=== PATIENT | female | born 2005 | race Caucasian/White ===

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

== ENCOUNTER 2024-05-31 16:55 | Outpatient (CLI) | payer MEDICAID, SELFPAY ==
[2024-05-31 17:55] LABS: Alanine Aminotransferase 20 U/L (12-78); Albumin Level 3.9 g/dl (3.5-5.0); Albumin/Globulin Ratio 1.4 (1.1-1.8); Alkaline Phosphatase 75 U/L (38-126); Anion Gap 11.4 mEq/L (5-15); Aspartate Amino Transferase 23 U/L (14-36); Bilirubin,Total 0.4 mg/dl (0.2-1.3); Blood Urea Nitrogen 11 mg/dl (7-17); Calcium 9.7 mg/dl (8.4-10.2); Carbon Dioxide 22 mmol/L (22.0-30.0); Chloride 110 mmol/L (98-107); Chol/HDL Ratio 3.5 (1-3.5); Cholesterol 257 mg/dl (140-200); Estimated Glomerular Filt Rate 108 ml/min (>60); GFR (African American) 130 ML/MIN (>60); Globulin 2.8 g/dL (1.3-3.2); Glucose 104 mg/dl (74-100); HDL Cholesterol 74 mg/dl (40-60); Potassium 3.4 mmoL/L (3.5-5.1); Sodium 140 mmol/L (136-145); Total Protein,Serum 6.7 g/dl (6.3-8.2); Triglycerides 130 mg/dl (30-150); VLDL Cholesterol 26 mg/dL (0-40)
[2024-05-31 18:07] LABS: Direct LDL Cholesterol 141.17 mg/dL (100-129)
[2024-05-31 18:10] LABS: Free T4 (Free Thyroxine) 1.35 ng/dl (0.78-2.19)
[2024-05-31 18:14] LABS: T4 (Thyroxine) 13.7 ug/dl (5.53-11.0)
[2024-05-31 18:28] LABS: Thyroid Stimulating Hormone 0.72 uIU/mL (0.465-4.68)
[2024-05-31 18:45] LABS: Vitamin B12 289 pg/mL (239-931)
[2024-05-31 20:35] LABS: Ferritin 17.3 ng/ml (6.24-137)
[2024-06-02 08:08] LABS: Thyroid Peroxidase Antibodies <9 IU/mL (0-26)
== END 2024-05-31 23:59 | disposition home or self-care (01) ==
LOC: LAB.DROPOF 06-03 16:56
PROVIDERS: PCP Nurse Practitioner Family; Visit Provider Nurse Practitioner Family
DX: E05.90 Thyrotoxicosis, unspecified without thyrotoxic crisis or storm (principal); E78.5 Hyperlipidemia, unspecified; I49.8 Other specified cardiac arrhythmias
CPT/HCPCS: 80053; 80061; 82607; 82728; 84436; 84439; 84443; 84481; 86376

== ENCOUNTER 2024-08-23 16:13 | Outpatient (CLI) | payer MEDICAID, SELFPAY ==
[2024-08-23 17:02] LABS: Albumin Level 4.4 g/dl (3.5-5.0); Chloride 106 mmol/L (98-107); Potassium 4.3 mmoL/L (3.5-5.1); Sodium 140 mmol/L (136-145)
[2024-08-23 17:05] LABS: Alanine Aminotransferase 18 U/L (12-78); Albumin/Globulin Ratio 1.6 (1.1-1.8); Alkaline Phosphatase 58 U/L (38-126); Anion Gap 12.3 mEq/L (5-15); Aspartate Amino Transferase 26 U/L (14-36); Bilirubin,Total 0.5 mg/dl (0.2-1.3); Blood Urea Nitrogen 8 mg/dl (7-17); Calcium 10.1 mg/dl (8.4-10.2); Carbon Dioxide 26 mmol/L (22.0-30.0); Estimated Glomerular Filt Rate 107 ml/min (>60); GFR (African American) 129 ML/MIN (>60); Globulin 2.8 g/dL (1.3-3.2); Glucose 73 mg/dl (74-100); Total Protein,Serum 7.2 g/dl (6.3-8.2)
[2024-08-23 17:20] LABS: 25-OH Vitamin D, Total 13.9 ng/mL (30-100)
[2024-08-23 17:35] LABS: Thyroid Stimulating Hormone 0.92 uIU/mL (0.465-4.68)
[2024-08-23 17:39] LABS: Ferritin 21.9 ng/ml (6.24-137)
[2024-08-23 18:40] LABS: Vitamin B12 339 pg/mL (239-931)
[2024-08-25 07:08] LABS: Triiodothyronine (T3) Free 3.1 pg/mL (2.0-4.4)
[2024-08-28 12:21] LABS: Chol/HDL Ratio 2.9 (1-3.5); Cholesterol 235 mg/dl (140-200); HDL Cholesterol 80 mg/dl (40-60); Triglycerides 165 mg/dl (30-150); VLDL Cholesterol 33 mg/dL (0-40)
[2024-08-28 18:10] LABS: Vitamin B1 111.4 nmol/L (66.5-200.0)
== END 2024-08-23 23:59 | disposition home or self-care (01) ==
LOC: LAB 16:14
PROVIDERS: PCP Nurse Practitioner Family; Visit Provider Nurse Practitioner Family
DX: E78.5 Hyperlipidemia, unspecified (principal); I49.8 Other specified cardiac arrhythmias; N92.6 Irregular menstruation, unspecified; E05.90 Thyrotoxicosis, unspecified without thyrotoxic crisis or storm
CPT/HCPCS: 36415; 80053; 80061; 82306; 82607; 82728; 83735; 84207; 84425; 84443; 84481

== ENCOUNTER 2024-11-19 16:03 | Outpatient (CLI) | payer MEDICAID, SELFPAY ==
[2024-11-19 13:59] LABS: Basophils % 0.5 % (0.1-2.0); Eosinophils # 0.1 K/mm3 (0.0-0.4); Eosinophils % 1.4 % (0.1-12.0); Hematocrit 37.2 % (37.0-47.0); Hemoglobin 12.5 g/dL (12.2-16.2); Lymphocytes % 44.7 % (10-50); Mean Corpuscular HGB Conc 33.6 g/dL (31.8-35.4); Mean Corpuscular Hemoglobin 30.2 pg (27.0-31.2); Mean Corpuscular Volume 89.9 fl (81-99); Mean Platelet Volume 10.6 fl (7.4-10.4); Monocytes # 0.4 K/mm3 (0.1-1.0); Monocytes % 4.8 % (1.7-9.3); Neutrophils # 4.3 K/mm3 (1.8-7.8); Neutrophils % 48.4 % (37.0-80.0); Platelet Count 263 K/mm3 (142-424); Red Blood Count 4.14 M/mm3 (4.20-5.40); Red Cell Distribution Width 11.2 % (11.5-17.5); White Blood Count 8.8 K/mm3 (4.5-13.0)
[2024-11-19 14:36] LABS: Albumin Level 4.3 g/dl (3.5-5.0); Chloride 103 mmol/L (98-107); Sodium 136 mmol/L (136-145)
[2024-11-19 14:37] LABS: Potassium 3.9 mmoL/L (3.5-5.1)
[2024-11-19 14:39] LABS: Alanine Aminotransferase 21 U/L (12-78); Albumin/Globulin Ratio 1.9 (1.1-1.8); Anion Gap 10.9 mEq/L (5-15); Aspartate Amino Transferase 25 U/L (14-36); Bilirubin,Total 0.3 mg/dl (0.2-1.3); Blood Urea Nitrogen 8 mg/dl (7-17); Carbon Dioxide 26 mmol/L (22.0-30.0); Estimated Glomerular Filt Rate 107 ml/min (>60); GFR (African American) 129 ML/MIN (>60); Globulin 2.3 g/dL (1.3-3.2); Total Protein,Serum 6.6 g/dl (6.3-8.2)
[2024-11-19 14:40] LABS: Alkaline Phosphatase 66 U/L (38-126); Calcium 9.7 mg/dl (8.4-10.2); Chol/HDL Ratio 2.6 (1-3.5); Cholesterol 162 mg/dl (140-200); Glucose 103 mg/dl (74-100); HDL Cholesterol 62 mg/dl (40-60); Triglycerides 122 mg/dl (30-150); VLDL Cholesterol 24 mg/dL (0-40)
[2024-11-19 14:53] LABS: Direct LDL Cholesterol 78.13 mg/dL (100-129)
[2024-11-19 15:13] LABS: Thyroid Stimulating Hormone 1.92 uIU/mL (0.465-4.68)
[2024-11-19 15:18] LABS: Ferritin 15.1 ng/ml (6.24-137)
== END 2024-11-19 23:59 | disposition home or self-care (01) ==
LOC: LAB.DROPOF 16:04
PROVIDERS: PCP Nurse Practitioner Family; Visit Provider Nurse Practitioner Family
DX: E78.5 Hyperlipidemia, unspecified (principal); N92.6 Irregular menstruation, unspecified; G90.A Postural orthostatic tachycardia syndrome [POTS]
CPT/HCPCS: 80053; 80061; 82728; 84443; 85025

== ENCOUNTER 2025-02-19 07:27 | Outpatient (CLI) | payer MEDICAID, SELFPAY ==
[2025-02-19 08:06] LABS: Basophils % 0.3 % (0.1-2.0); Eosinophils # 0.1 K/mm3 (0.0-0.4); Hematocrit 36.3 % (37.0-47.0); Hemoglobin 12.4 g/dL (12.2-16.2); Lymphocytes # 3.7 K/mm3 (0.7-4.5); Lymphocytes % 42.9 % (10-50); Mean Corpuscular HGB Conc 34.2 g/dL (31.8-35.4); Mean Corpuscular Hemoglobin 30.2 pg (27.0-31.2); Mean Corpuscular Volume 88.5 fl (81-99); Mean Platelet Volume 10.2 fl (7.4-10.4); Monocytes # 0.4 K/mm3 (0.1-1.0); Monocytes % 4.1 % (1.7-9.3); Neutrophils # 4.5 K/mm3 (1.8-7.8); Neutrophils % 51.4 % (37.0-80.0); Nucleated Red Blood Cells # 0 10^3/uL; Nucleated Red Blood Cells % 0 %; Platelet Count 287 K/mm3 (142-424); Red Cell Distribution Width 11.5 % (11.5-17.5); Red Cell Distribution Width-SD 37.2 fL; White Blood Count 8.7 K/mm3 (4.5-13.0)
[2025-02-19 08:54] LABS: Chloride 104 mmol/L (98-107); Potassium 3.6 mmoL/L (3.5-5.1); Sodium 139 mmol/L (136-145)
[2025-02-19 08:57] LABS: Alanine Aminotransferase 23 U/L (12-78); Albumin/Globulin Ratio 1.4 (1.1-1.8); Alkaline Phosphatase 67 U/L (38-126); Amylase 87 U/L (30-110); Anion Gap 12.6 mEq/L (5-15); Aspartate Amino Transferase 26 U/L (14-36); Bilirubin,Total 0.4 mg/dl (0.2-1.3); Blood Urea Nitrogen 8 mg/dl (7-17); Calcium 9.2 mg/dl (8.4-10.2); Carbon Dioxide 26 mmol/L (22.0-30.0); Estimated Glomerular Filt Rate 107 ml/min (>60); GFR (African American) 129 ML/MIN (>60); Globulin 2.8 g/dL (1.3-3.2); Glucose 89 mg/dl (74-100); HDL Cholesterol 63 mg/dl (40-60); Lipase 82 U/L (23-300); Total Protein,Serum 6.8 g/dl (6.3-8.2)
[2025-02-19 08:58] LABS: Chol/HDL Ratio 2.3 (1-3.5); Cholesterol 148 mg/dl (140-200); Triglycerides 125 mg/dl (30-150); VLDL Cholesterol 25 mg/dL (0-40)
[2025-02-19 09:05] LABS: Free T4 (Free Thyroxine) 1.38 ng/dl (0.78-2.19)
[2025-02-19 09:11] LABS: Direct LDL Cholesterol 69.56 mg/dL (100-129)
[2025-02-19 09:15] LABS: T4 (Thyroxine) 16.1 ug/dl (5.53-11.0)
[2025-02-19 09:28] LABS: Thyroid Stimulating Hormone 1.68 uIU/mL (0.465-4.68)
[2025-02-20 08:41] LABS: Triiodothyronine (T3) Free 3.4 pg/mL (2.0-4.4)
[2025-02-20 14:12] LABS: Endomysial IgA Antibody Negative (Negative); H. pylori Breath Test Negative (Negative)
[2025-02-20 15:11] LABS: Cortisol,AM 2.7 ug/dL (6.2-19.4); Deamidated Gliadin Abs, IgA 7 units (0-19); Deamidated Gliadin Abs, IgG 4 units (0-19); Tissue Transglutaminase IgA Ab <2 U/mL (0-3); Tissue Transglutaminase IgG Ab 3 U/mL (0-5)
[2025-02-26 09:31] LABS: Reticulin IgA Antibody Negative titer (Neg:<1:2.5)
== END 2025-02-19 23:59 | disposition home or self-care (01) ==
PROVIDERS: PCP Nurse Practitioner Family; Visit Provider Nurse Practitioner Family
DX: G90.A Postural orthostatic tachycardia syndrome [POTS] (principal); E05.90 Thyrotoxicosis, unspecified without thyrotoxic crisis or storm; R19.7 Diarrhea, unspecified; R10.10 Upper abdominal pain, unspecified; E78.5 Hyperlipidemia, unspecified
CPT/HCPCS: 36415; 80053; 80061; 82150; 82533; 82785; 83013; 83516; 83690; 84436; 84439; 84443; 84481; 85025; 86003; 86008; 86255; 86256

== ENCOUNTER 2025-03-24 07:44 | Outpatient (CLI) | payer MEDICAID, SELFPAY ==
[2025-03-25 15:11] LABS: Cortisol,AM 20.7 ug/dL (6.2-19.4)
== END 2025-03-24 23:59 | disposition home or self-care (01) ==
LOC: LAB 07:45
PROVIDERS: PCP Nurse Practitioner Family; Visit Provider Nurse Practitioner Family
DX: R79.89 Other specified abnormal findings of blood chemistry (principal); R53.83 Other fatigue
CPT/HCPCS: 36415; 82533

== ENCOUNTER 2025-05-19 15:57 | Outpatient (CLI) | payer MEDICAID, SELFPAY ==
--- OUTSIDE RECORDS SUMMARY | 2025-05-19 15:59 | XMS_ITS | Clinical Summary ---
Author Organization Healthcare Address [address] [place] [address] Care Team Providers Care Manager Hiv Name Role Phone Eddie Wolfe MD Primary Care Provider [phone] Allergies No known active allergies Medications busPIRone (Buspar) 5 MG tablet TAKE 1 TABLET 3 TIMES DAILY. 0 Active sertraline (Zoloft) 100 MG tablet Take 100 mg by mouth 1 (one) time each day. 2 Active Isibloom 0.15-30 MG-MCG tablet Take 1 tablet by mouth 1 (one) time each day. 2 Active fludrocortisone (Florinef) 0.1 MG tablet Take 1 tablet (0.1 mg) by mouth three times daily 90 tablet 4 2 Active Nurtec 75 MG tablet dispersible TAKE 1 TABLET BY MOUTH NEEDED FOR MIGRAINE 2 Active propranolol (Inderal) 20 MG tablet Take 20 mg by mouth 2 (two) times a day. 2 Active Active Problems Problem Noted Date Diagnosed Date POTS (postural orthostatic tachycardia syndrome) 04/09/2021 Dysautonomia 01/22/2021 Depression with anxiety 10/26/2020 Family History Medical History Relation Name Comments Hypertension Other 1 Thyroid disease Other 2 Hyperlipidemia Other 3 Relation Name Status Comments Other 1 Other 2 Other 3 Social History Tobacco Use Types Packs/Day Years Used Date Smoking Tobacco: Never Smokeless Tobacco: Never Alcohol Use Standard Drinks/Week Comments Never 0 (1 standard drink = 0.6 oz pur e alcohol) Comments Unknown Sex and Gender Information Value Date Recorded Sex Assigned at Not on file Legal Sex Female 7:51 PM EDT Gender Identity Not on file Sexual Orientation Not on file Last Filed Vital Signs Vital Sign Reading Time Taken Comments Blood Pressure 121/83 08/10/2022 3:28 PM EDT Pulse 106 08/10/2022 3:28 PM EDT Temperature - - Respiratory Rate - - Oxygen Saturation - - Inhaled Oxygen Concentration - - Weight 84.3 kg (185 lb 13.6 oz) 08/10/2022 3:28 PM EDT Height 170.9 cm (5' 7.28 ) 08/10/2022 3:28 PM ED T Body Mass Index 28.86 08/10/2022 3:28 PM EDT Plan of Treatment Health Maintenance Due Date Last Done Comments [facility]-Depression Screening 2004 [facility]-HIV Screening 2004 [facility]-Hepatitis C Screening 2004 [facility]-Infant/Child/Adol SDOH Screenings 2004 HPV Vaccines (1 - 3-dose series) 2019 [facility]- SDOH Screenings 2022 [facility]-Adult SDOH Screenings 2022 [id number] Vaccine ( - season) 2024 10/24/2021, 02/16/2021, 01/26/2021 [facility]-DTaP,Tdap,and Td Vaccines (2 - Td or Tdap) 05/27/2025 05/27/2015 [facility]-Influenza Vaccine (#1) 2025 07/20/2022, [facility]-Zoster Vaccines (1 of 2) 2054 07/11/2008, 07/06/2005 [facility]-Hepatitis B Vaccines Completed , 2004, 2004 [facility]-Hepatitis A Vaccines Completed 08/06/2007, 07/08 [facility]-IPV Vaccines Completed 07/11/2008, , 2004, Additional history exists [facility]-Varicella Vaccines Completed 07/11/2008, 2004 [facility]-Obesity Intervention Completed 08/10/2022 [facility]-HIB Vaccines Aged Out No longer e ligible based on patient's age to complete this topic [facility]-Pneumococcal Vaccine: Pediatrics (0 to 5 Years) and At-Risk Patients (6 to 49 Years) Aged Out No longer eligible based on patient's age to complete this topic [facility]-Rotavirus Vaccines Aged Out No lo nger eligible based on patient's age to complete this topic Insurance ANTHEM ANTHEM ANTHEM Care Teams Manager Hiv Relationship Specialty Start Date End Date Eddie Wolfe MD [address] [facility] [address] [place] [address] PCP - General 03/19/21
--- OUTSIDE RECORDS SUMMARY | 2025-05-19 15:59 | XMS_ITS | Encounter Summary ---
Author Organization Healthcare Address [address] [place] [address] Care Team Providers Care Metalworker Name Role Phone Eddie Wolfe MD Primary Care Provider [phone] Reason for Visit * Reason Comments Med Refill Encounter Details Date Type Department Care Team (Late st Contact Info) Description 05/02/2022 Refill [facility] [address] [place] [address] Sade Hdz MD [address] [place] [address] Social History Tobacco Use Types Packs/Day Years Used Date Smoking Tobacco: Never Smokeless Tobacco: Never Alcohol Use Standard Drinks/Week Comments Never 0 (1 standard drink = 0.6 oz pur e alcohol) Comments Unknown Sex and Gender Information Value Date Recorded Sex Assigned at Not on file Legal Sex Female 7:51 PM EDT Gender Identity Not on file Sexual Orientation Not on file documented as of this encounter Plan of Treatment Not on file documented as of this encounter Visit Diagnoses Not on filedocumented in this encounter Care Teams Metalworker Relationship Specialty Start Date End Date Eddie Wolfe MD [address] [place] [address] PCP - General 03/19/21 documented as of this encounter
[2025-05-19 16:47] LABS: Hematocrit 39.6 % (37.0-47.0); Hemoglobin 13.1 g/dL (12.2-16.2); Immature Granulocytes % 0.2 %; Mean Corpuscular HGB Conc 33.1 g/dL (31.8-35.4); Mean Corpuscular Hemoglobin 30.0 pg (27.0-31.2); Mean Corpuscular Volume 90.6 fl (81-99); Nucleated Red Blood Cells % 0 %; Platelet Count 261 K/mm3 (142-424); Red Blood Count 4.37 M/mm3 (4.20-5.40); Red Cell Distribution Width-SD 38.0 fL; White Blood Count 6.2 K/mm3 (4.5-13.0)
[2025-05-19 17:25] LABS: Alanine Aminotransferase 14 U/L (12-78); Albumin Level 4.6 g/dl (3.5-5.0); Albumin/Globulin Ratio 1.6 (1.1-1.8); Alkaline Phosphatase 70 U/L (38-126); Anion Gap 18.0 mEq/L (5-15); Aspartate Amino Transferase 24 U/L (14-36); Bilirubin,Total 0.5 mg/dl (0.2-1.3); Blood Urea Nitrogen 6 mg/dl (7-17); Calcium 10.1 mg/dl (8.4-10.2); Carbon Dioxide 26 mmol/L (22.0-30.0); Chloride 99 mmol/L (98-107); Creatinine,Serum 0.60 mg/dl (0.52-1.04); Estimated Glomerular Filt Rate 127 ml/min (>60); GFR (African American) 154 ML/MIN (>60); Globulin 2.9 g/dL (1.3-3.2); Glucose 90 mg/dl (74-100); Potassium 4.0 mmoL/L (3.5-5.1); Sodium 139 mmol/L (136-145); Total Protein,Serum 7.5 g/dl (6.3-8.2)
[2025-05-19 17:57] LABS: Thyroid Stimulating Hormone 1.06 uIU/mL (0.465-4.68)
[2025-05-21 08:27] LABS: Cytomegalovirus (CMV) Ab, IgG <0.60 U/mL (0.00-0.59); Cytomegalovirus (CMV) Ab, IgM <30.0 AU/mL (0.0-29.9)
[2025-05-21 16:13] LABS: EBV Nuclear Antigen Ab, IgG <18.0 U/mL (0.0-17.9)
[2025-05-22 12:16] LABS: Dopamine, Plasma < 10.0 pg/mL (0.0-36.7); Epinephrine, Plasma 13.0 pg/mL (0.0-55.4); Norepinephrine, Plasma 258 pg/mL (115-524)
== END 2025-05-19 23:59 | disposition home or self-care (01) ==
LOC: LAB 15:57
PROVIDERS: PCP Nurse Practitioner Family; Visit Provider Nurse Practitioner Family
DX: G90.A Postural orthostatic tachycardia syndrome [POTS] (principal)
CPT/HCPCS: 36415; 80053; 82024; 82384; 84443; 85025; 86644; 86645; 86664; 86665; 93225; 93227

== ENCOUNTER 2025-06-02 15:13 | Outpatient (CLI) | payer MEDICAID, SELFPAY ==
--- OUTSIDE RECORDS SUMMARY | 2025-06-02 15:16 | XMS_ITS | Clinical Summary ---
Author Organization Healthcare Address [address] [place] [address] Care Team Providers Care Material Handler 2Nd Shift Name Role Phone Eddie Wolfe MD Primary Care Provider [phone] Allergies No known active allergies Medications busPIRone [...] SDOH Screenings 2022 [facility]-Adult SDOH Screenings 2022 [id number] Vaccine ( - season) 2024 10/24/2021, 02/16/2021, [...] topic Insurance ANTHEM ANTHEM ANTHEM Care Teams Material Handler 2Nd Shift Relationship Specialty Start Date End Date Eddie Wolfe MD [address] [facility] [address] [place] [address] PCP - General 03/19/21
--- OUTSIDE RECORDS SUMMARY | 2025-06-02 15:16 | XMS_ITS | Clinical Summary ---
[facility] [address] [place] [address] Care Team Providers Care Pulpwood Dealer Name Role Phone Cristhian Wolfe MD Primary Care Provider Allergies No known active allergies Medications azithromycin (ZITHROMAX) 200 MG/5ML suspensionIndic ations:Tonsilli tis Give the patient 12.5 ml by mouth the first day then 7.5 ml by mouth daily for 4 days. 42.5 mL 01/05/2017 Active Active Problems No known active problems Social History Tobacco Use Types Packs/Day Years Used Date Smoking Tobacco: Never Assessed Abuse Screen Answer Date Recorded Unsafe at Home or Work/School Not on file Feels Threatened by Someone? Not on file 07/2023 Does Anyone Keep You from Co ntacting Others or Doint Things Outside the Home? Not on file 08/14/2023 Physical Sign of Abuse Present Not on file 1 Housing Stability Answer Date Recorded Current Living Arrangements Not on file 07/2023 Potentially Unsafe Housing Conditions Not on cony e 08/14/2023 Family and Community Support Answer Geremias e Recorded Help with Day-to-Day Activities Not on file 08/14/2023 Lonely or Isolated Not on file 08/14/2023 Employment Answer Date Recorded Do you want help finding or keeping work or a gurjit b? Not on file 08/14/2023 Disabilities Answer Date Recorded Concentrating, Remembering, or Making Decisions Difficulty Not on file 08/14/2023 Doing Errands Independently Difficulty Not on fi le 08/14/2023 Education Answer Date Recorded Help with school or training? Not on file Preferred Language Not on file 08/14/2023 Comments Unknown Sex and Gender Information Value Date Recorded Sex Assigned at Not on file Legal Sex Female 12:13 PM EDT Gender Identity Not on file Sexual Orientation Not on file Last Filed Vital Signs Vital Sign Reading Time Taken Comments Blood Pressure - - Pulse 102 01/05/2017 2:57 PM EST Temperature 37.5 C (99.5 F) 01/05/2017 2:57 PM EST Respiratory Rate 20 01/05/2017 2:57 PM EST Oxygen Saturation 98% 01/05/2017 2:57 PM EST Inhaled Oxygen Concentration - - Weight 65.8 kg (145 lb) 01/05/2017 2:57 PM EST Height 166.4 cm (5' 5.5 ) 01/05/2017 2:57 PM EST Body Mass Index 23.76 01/05/2017 2:57 PM EST Plan of Treatment Health Maintenance Due Date Last Done Comments ANNUAL PHYSICAL 2004 HEPATITIS C SCREENING 2004 HPV VACCINES (1 - 3-dose series) 2019 MENINGOCOCCAL B VACCINE (1 o f 2 - Standard) 2020 TDAP/TD VACCINES (1 - Tdap) 2023 COVID-19 Vaccine (1 - 2023-2 5 season) 2024 INFLUENZA VACCINE 08/06/2025 MENINGOCOCCAL VACCINE Aged Out No ester mahnaz eligible based on patient's age to complete this topic Pneumococcal Vaccine 0-49 Aged Out No longer eligible based on patient's age to complete this topic Insurance [employer] Care Teams Pulpwood Dealer Relationship Specialty Start Date End Date Cristhian Wolfe MD PCP - General Neurology 01/05/17
--- OUTSIDE RECORDS SUMMARY | 2025-06-02 15:16 | XMS_ITS | Encounter Summary ---
Author Organization Healthcare Address [address] [place] [address] Care Team Providers Care Microbiology Analyst Name Role Phone Eddie Wolfe MD Primary Care Provider [phone] Reason for Visit * Reason Comments Med Refill Encounter Details Date Type Department Care Team (Late st Contact Info) Description 05/02/2022 Refill [facility] [address] [place] [address] Sade Hdz MD [address] [place] [address] Social History Tobacco Use Types [...] on filedocumented in this encounter Care Teams Microbiology Analyst Relationship Specialty Start Date End Date Eddie Wolfe MD [address] [place] [address] PCP - General 03/19/21 documented as of this encounter
== END 2025-06-02 23:59 | disposition home or self-care (01) ==
LOC: RT 15:14
PROVIDERS: PCP Nurse Practitioner Family; Visit Provider Nurse Practitioner Family
DX: R69 Illness, unspecified (principal)

== ENCOUNTER 2025-06-09 12:36 | Outpatient (CLI) | payer MEDICAID, SELFPAY ==
--- OUTSIDE RECORDS SUMMARY | 2025-06-09 12:39 | XMS_ITS | Encounter Summary ---
Author Organization Healthcare Address [address] [place] [address] Care Team Providers Care Irrigation Specialist Name Role Phone Eddie Wolfe MD Primary Care Provider [phone] Reason for Visit * Reason Comments Med Refill Encounter Details Date Type Department Care Team (Late st Contact Info) Description 05/02/2022 Refill [facility] [address] [place] [address] Sade Hdz MD [address] [place] [address] Social History Tobacco Use Types [...] on filedocumented in this encounter Care Teams Irrigation Specialist Relationship Specialty Start Date End Date Eddie Wolfe MD [address] [place] [address] PCP - General 03/19/21 documented as of this encounter
--- OUTSIDE RECORDS SUMMARY | 2025-06-09 12:39 | XMS_ITS | Clinical Summary ---
Author Organization Healthcare Address [address] [place] [address] Care Team Providers Care Wildlife Veterinarian Name Role Phone Eddie Wolfe MD Primary Care Provider [phone] Allergies No known active allergies Medications busPIRone [...] SDOH Screenings 2022 [facility]-Adult SDOH Screenings 2022 [id number] Vaccine ( - season) 2024 10/24/2021, 02/16/2021, [...] topic Insurance ANTHEM ANTHEM ANTHEM Care Teams Wildlife Veterinarian Relationship Specialty Start Date End Date Eddie Wolfe MD [address] [facility] [address] [place] [address] PCP - General 03/19/21
--- OUTSIDE RECORDS SUMMARY | 2025-06-09 12:39 | XMS_ITS | Clinical Summary ---
[facility] [address] [place] [address] Care Team Providers Care Software Business Analyst Name Role Phone Cristhian Wolfe MD Primary Care Provider [phone] Allergies No known active allergies Medications azithromycin [...] topic Insurance [employer] Care Teams Software Business Analyst Relationship Specialty Start Date End Date Cristhian Wolfe MD PCP - General Neurology 01/05/17
== END 2025-06-09 23:59 | disposition home or self-care (01) ==
LOC: RT 12:37
PROVIDERS: PCP Nurse Practitioner Family; Visit Provider Nurse Practitioner Family
DX: I49.1 Atrial premature depolarization (principal); R03.0 Elevated blood-pressure reading, without diagnosis of hypertension

== ENCOUNTER 2025-06-13 10:45 | Outpatient (CLI) | payer MEDICAID, SELFPAY ==
--- OUTSIDE RECORDS SUMMARY | 2025-06-13 10:47 | XMS_ITS | Clinical Summary ---
[facility] Address [address] [place] [address] Care Team Providers Care Crocheter Name Role Phone Cristhian Wolfe MD Primary [...] topic Insurance [employer] Care Teams Crocheter Relationship Specialty Start Date End Date Cristhian Wolfe MD PCP - General Neurology 01/05/17
--- OUTSIDE RECORDS SUMMARY | 2025-06-13 10:47 | XMS_ITS | Clinical Summary ---
Author Organization Healthcare Address [address] [place] [address] Care Team Providers Care Chemist Helper Name Role Phone Eddie Wolfe MD Primary Care Provider [phone] Allergies No known active allergies Medications busPIRone [...] SDOH Screenings 2022 [facility]-Adult SDOH Screenings 2022 [id number] Vaccine ( - season) 2024 10/24/2021, 02/16/2021, [...] topic Insurance ANTHEM ANTHEM ANTHEM Care Teams Chemist Helper Relationship Specialty Start Date End Date Eddie Wolfe MD [address] [facility] [place] [address] PCP - General 03/19/21
--- OUTSIDE RECORDS SUMMARY | 2025-06-13 10:47 | XMS_ITS | Encounter Summary ---
Author Organization Healthcare Address [address] [place] [address] Care Team Providers Care Splitter Hand Name Role Phone Eddie Wolfe MD Primary Care Provider [phone] Reason for Visit * Reason Comments Med Refill Encounter Details Date Type Department Care Team (Late st Contact Info) Description 05/02/2022 [facility]ill [facility] [address], [address] [place] [address] Sade Hdz MD [address] [place] [address] Social History Tobacco Use Types [...] on filedocumented in this encounter Care Teams Splitter Hand Relationship Specialty Start Date End Date Eddie Wolfe MD [address] [place] [address] PCP - General 03/19/21 documented as of this encounter
--- NOTE | 2025-06-13 11:00 | CA_ITS ---
FINAL REPORT CLINICAL HISTORY: ELEVATED BP,POTS FINDINGS: Aorta velocity: 162 cm/sec Right kidney: 10.4 cm. No evidence of hydronephrosis or mass. Right intrarenal RI: 0.48 Right renal artery velocity: 199 cm/sec. Right RAR (Renal artery-Aortic Ratio): 1.2 Left Kidney: 11.1 cm. No evidence of hydronephrosis or mass. Left intrarenal RI: 0.49 Left renal artery velocity: 137 cm/sec. Left RAR (Renal Artery-Aortic Ratio): 0.84 IMPRESSION: No evidence of significant left renal artery stenosis. Less than 60% renal artery stenosis on the right. CT angiogram or postcontrast MR angiogram would be more sensitive for evaluation of possible renal artery stenosis. Reviewed, Interpreted and Dictated by Rogelio Orlando MD Transcribed by Lashell Norris Authenticated and [facility]
== END 2025-06-13 23:59 | disposition home or self-care (01) ==
LOC: RT 10:46
PROVIDERS: PCP Nurse Practitioner Family; Visit Provider Nurse Practitioner Family
DX: I49.1 Atrial premature depolarization (principal); I70.1 Atherosclerosis of renal artery; G90.A Postural orthostatic tachycardia syndrome [POTS]; R03.0 Elevated blood-pressure reading, without diagnosis of hypertension
CPT/HCPCS: 93270; 93976

== ENCOUNTER 2025-06-30 15:10 | Outpatient (CLI) | payer MEDICAID, SELFPAY ==
[2025-06-30 20:11] LABS: Alanine Aminotransferase 12 U/L (12-78); Albumin Level 4.4 g/dl (3.5-5.0); Albumin/Globulin Ratio 1.8 (1.1-1.8); Alkaline Phosphatase 64 U/L (38-126); Anion Gap 14.0 mEq/L (5-15); Aspartate Amino Transferase 22 U/L (14-36); Bilirubin,Total 0.6 mg/dl (0.2-1.3); Blood Urea Nitrogen 10 mg/dl (7-17); Calcium 9.5 mg/dl (8.4-10.2); Carbon Dioxide 25 mmol/L (22.0-30.0); Chloride 103 mmol/L (98-107); Creatinine,Serum 0.70 mg/dl (0.52-1.04); Estimated Glomerular Filt Rate 106 ml/min (>60); GFR (African American) 128 ML/MIN (>60); Globulin 2.5 g/dL (1.3-3.2); Glucose 83 mg/dl (74-100); Magnesium 1.9 mg/dl (1.6-2.3); Potassium 4.0 mmoL/L (3.5-5.1); Sodium 138 mmol/L (136-145); Total Protein,Serum 6.9 g/dl (6.3-8.2)
[2025-06-30 20:28] LABS: 25-OH Vitamin D, Total 55.3 ng/mL (30-100)
--- OUTSIDE RECORDS SUMMARY | 2025-07-02 11:32 | XMS_ITS | Encounter Summary ---
Author Organization Healthcare Address [address] [place] [address] Care Team Providers Care Plastic Molding Operator Name Role Phone Eddie Wolfe MD Primary Care Provider Reason for Visit * Reason Comments Med Refill Encounter Details Date Type Department Care Team (Late st Contact Info) Description 05/02/2022 Refill [place] [facility] [address], [address] [place] [address] Sade Hdz MD [address] [place] [address] Social History Tobacco Use Types [...] on filedocumented in this encounter Care Teams Plastic Molding Operator Relationship Specialty Start Date End Date Eddie Wolfe MD [address] [place] [address] PCP - General 03/19/21 documented as of this encounter
--- OUTSIDE RECORDS SUMMARY | 2025-07-02 11:32 | XMS_ITS | Clinical Summary ---
Author Organization Healthcare Address [address] [place] [address] Care Team Providers Care Leasing Specialist Name Role Phone Eddie Wolfe MD Primary Care Provider [phone] Allergies No known active allergies Medications busPIRone [...] [facility]-HIV Screening 2004 [facility]-Hepatitis C Screening 2004 [facility]-/Child/Adol SDOH Screenings 2004 HPV Vaccines (1 - 3-dose series) 2019 [facility]- SDOH Screenings 2022 [facility]-Adult SDOH Screenings 2022 [id number] Vaccine ( - season) 2024 10/24/2021, 02/16/2021, 01/26/2021 UKY-DTaP,Tdap,and Td Vaccines (2 - Td or Tdap) 05/27/2025 05/27/2015 [facility]-Pap Smear 2025 [facility]-Influenza Vaccine (#1) 2025 07/20/2022, [facility]-Zoster Vaccines (1 of 2) 2054 07/11/2008, 07/06/2005 [facility]-Hepatitis B Vaccines Completed 005, 2004, 2004 [facility]-Hepatitis A Vaccines Completed 08/06/2007, [...] topic Insurance ANTHEM ANTHEM ANTHEM Care Teams Leasing Specialist Relationship Specialty Start Date End Date Eddie Wolfe MD [address] [place] [address] PCP - General 03/19/21
--- OUTSIDE RECORDS SUMMARY | 2025-07-02 11:32 | XMS_ITS | Clinical Summary ---
[facility] [address] [place] [address] Care Team Providers Care Grain Handler Name Role Phone Cristhian Wolfe MD Primary [...] Date Last Done Comments ANNUAL PHYSICAL 2004 Annual Gynecologic Pelvic an d Breast Exam 2004 HEPATITIS C SCREENING 2004 HPV VACCINES [...] patient's age to complete this topic Insurance [place] [id number] Care Teams Grain Handler Relationship Specialty Start Date End Date Cristhian Wolfe MD PCP - General Neurology 01/05/17
== END 2025-06-30 23:59 | disposition home or self-care (01) ==
LOC: LAB.DROPOF 07-02 11:30
PROVIDERS: PCP Nurse Practitioner Family; Visit Provider Nurse Practitioner Family
DX: G90.A Postural orthostatic tachycardia syndrome [POTS] (principal); E05.90 Thyrotoxicosis, unspecified without thyrotoxic crisis or storm; E55.9 Vitamin D deficiency, unspecified
CPT/HCPCS: 80053; 82306; 83735

== ENCOUNTER → 2025-07-17 07:41 | Outpatient (CLI) | payer MEDICAID, SELFPAY ==
--- OUTSIDE RECORDS SUMMARY | 2025-07-17 07:43 | XMS_ITS | Encounter Summary ---
Author Organization Healthcare Address [address] [place] [address] Care Team Providers Care Library Circulation Assistant Name Role Phone Eddie Wolfe MD Primary Care Provider [phone] Reason for Visit * Reason Comments Med Refill Encounter Details Date Type Department Care Team (Late st Contact Info) Description 05/02/2022 Refill [place] [facility] [address], [address] [place] [address] Sade Hdz MD [address] [place] [address] Social History Tobacco Use Types [...] on filedocumented in this encounter Care Teams Library Circulation Assistant Relationship Specialty Start Date End Date Eddie Wolfe MD [address] [place] [address] PCP - General 03/19/21 documented as of this encounter
--- OUTSIDE RECORDS SUMMARY | 2025-07-17 07:43 | XMS_ITS | Clinical Summary ---
Author Organization Healthcare Address [address] [place] [address] Care Team Providers Care Heel Padder Name Role Phone Eddie Wolfe MD Primary Care Provider [phone] Allergies No known active allergies Medications busPIRone [...] SDOH Screenings 2022 [facility]-Adult SDOH Screenings 2022 [facility]Y-DTaP,Tdap,and Td Vaccines (2 - Td or Tdap) 05/27/2025 05/27/2015 [facility]Y-Pap Smear 2025 [id number] Vaccine ( season) 2025 10/24/2021, 02/16/2021, 01/26/2021 [facility]Y-Influenza Vaccine (#1) 2025 07/20/2022, UKY-Zoster Vaccines [...] topic Insurance ANTHEM ANTHEM ANTHEM Care Teams Heel Padder Relationship Specialty Start Date End Date Eddie Wolfe MD [address] [place] [address] PCP - General 03/19/21
--- OUTSIDE RECORDS SUMMARY | 2025-07-17 07:43 | XMS_ITS | Clinical Summary ---
[facility] [address] [place] [address] Care Team Providers Care Nail Technician Name Role Phone Cristhian Wolfe MD Primary [...] COVID-19 Vaccine (1 - 2023-2 5 season) 2025 INFLUENZA VACCINE 08/06/2025 MENINGOCOCCAL VACCINE Aged Out No ester mahnaz eligible based on patient's age to complete this topic Pneumococcal Vaccine 0-49 Aged Out No longer eligible based on patient's age to complete this topic Insurance [place] [id number] Care Teams Nail Technician Relationship Specialty Start Date End Date Cristhian Wolfe MD PCP - General Neurology 01/05/17
== END ==
LOC: SL 07:42
PROVIDERS: PCP Nurse Practitioner Family; Visit Provider Nurse Practitioner Family
DX: G90.A Postural orthostatic tachycardia syndrome [POTS] (principal); R53.83 Other fatigue; R06.83 Snoring
CPT/HCPCS: G0399

== ENCOUNTER 2025-08-11 07:41 | Outpatient (CLI) | payer MEDICAID, SELFPAY ==
--- OUTSIDE RECORDS SUMMARY | 2025-08-11 07:42 | XMS_ITS | Clinical Summary ---
Author Organization Healthcare Address [address] [place] [address] Care Team Providers Care Banking Teacher Name Role Phone Eddie Wolfe MD Primary Care Provider [phone] Allergies No known active allergies Medications busPIRone [...] or Tdap) 05/27/2025 05/27/2015 [facility]-Pap Smear 2025 [id number] Vaccine ( season) 2025 10/24/2021, 02/16/2021, 01/26/2021 [...] topic Insurance ANTHEM ANTHEM ANTHEM Care Teams Banking Teacher Relationship Specialty Start Date End Date Eddie Wolfe MD [address] [place] [address] PCP - General 03/19/21
--- OUTSIDE RECORDS SUMMARY | 2025-08-11 07:42 | XMS_ITS | Clinical Summary ---
[facility] Address [address] [place] [address] Care Team Providers Care Hadoop Software Engineer Name Role Phone Cristhian Wolfe MD Primary Care Provider [phone] Allergies No known active allergies Medications azithromycin [...] 2020 TDAP/TD VACCINES (1 - Tdap) 2023 INFLUENZA VACCINE 06/06/2025 MENINGOCOCCAL VACCINE Aged Out No ester mahnaz eligible based on patient's age to complete this topic Pneumococcal Vaccine 0-49 Aged Out No longer eligible based on patient's age to complete this topic Insurance [facility] [place] [id number] Care Teams Hadoop Software Engineer Relationship Specialty Start Date End Date Cristhian Wolfe MD PCP - General Neurology 01/05/17
--- OUTSIDE RECORDS SUMMARY | 2025-08-11 07:42 | XMS_ITS | Encounter Summary ---
Author Organization Healthcare Address [address] [place] [address] Care Team Providers Care Big Data Admin Name Role Phone Eddie Wolfe MD Primary Care Provider [phone] Reason for Visit * Reason Comments Med Refill Encounter Details Date Type Department Care Team (Late st Contact Info) Description 05/02/2022 Refill [place] [facility] [address], [address] [place] [address] Sade Hdz MD [address] [place] [address] Social History Tobacco Use Types [...] on filedocumented in this encounter Care Teams Big Data Admin Relationship Specialty Start Date End Date Eddie Wolfe MD [address] [place] [address] PCP - General 03/19/21 documented as of this encounter
--- NOTE | 2025-08-11 08:00 | CA_ITS ---
APPROVED REPORT EXAM: Comprehensive 2D, Doppler, and color-flow Echocardiogram Shoe Treer: Octavia Wilson, RT(R) Ht: 5 ft 7 in Wt: 199lbs BSA: 2.02 BP: 122/80 mmHg Indications: LVH, abnormal EKG, hsitory of POTS Echo Enhancing Agent Indication: Endocardial border delineation Agent(s) / Amount(s) Used: Definity 2 cc 2D Dimensions Left Atrium 2.66 cm F: 2.7 - 3.8 LVEF (Hairston's) 52.20 % F: 54 - 74 LVOT 1.81 cm (M/F) 1.5-2.5 LV Volume 93.00 mL F: 46 - 106 LV Volume Index 46.0 mL/m2 F: 29 - 61 LA Volume 14.70 mL LA Volume Index 7.28 mL/m2 (M/F) 16-34 EF AP4 47.80 % EF AP2 55.4 % EF BP 52.2 % GL Strain -19.4 % M-Mode Dimensions RVDd 2.51 cm (0.9-2.6) LVDd 4.15 cm (3.5-5.7) Ao Diam 2.46 cm (2.0-3.7) LVDs 3.01 cm (3.5-5.7) IVSd 0.54 cm (0.6-1.1) PWd 0.60 cm (0.6-1.1) EF (Teich) 53.80% FS 27.50% EDV (Teich) 76.40 mL ESV (Teich) 35.30 mL LV Diastology E Decel Time 189 (160-240 msec) E/A Ratio 1.8 MED E' 13.0 (>= 7 cm/sec) E'/MED E' Ratio 6.67 (<= 14) LAT E' 21.8 (>= 10 cm/sec) E/LAT E' Ratio 3.98 (<= 14) Mitral Valve MV E Max Cooper. 87.0 (40-130 cm/s) MV A Velocity 49.0 (40-130 cm/s) E/A Ratio 1.78 MV Decel. Time 189 (160-240 ms) Left Ventricle The left ventricle is normal size. Left ventricular systolic function is normal. The left ventricular ejection fraction is within the normal range. There is normal left ventricular wall thickness. There is normal LV segmental wall motion. The left ventricular diastolic function is normal. No left ventricle thrombus noted on this study. LVEF is 55% Right Ventricle The right ventricle is normal size. The right ventricular systolic function is normal. Atria The left atrium size is normal. The right atrium size is normal. There is no color Doppler evidence of interatrial shunt. Aortic Valve The aortic valve opens well. There is no hemodynamically significant aortic valvular stenosis. No aortic regurgitation is present. Mitral Valve The mitral valve is normal in structure. No evidence of mitral valve stenosis. Trace mitral regurgitation is present. Tricuspid Valve The tricuspid valve leaflets are thin and pliable. Trace tricuspid regurgitation. There is insufficient TR jet to estimate RVSP. Pulmonic Valve The pulmonary valve is grossly normal in structure. Mild pulmonic valve regurgitation is present. Great Vessels The aortic root is normal in size. IVC is normal in size and collapses >50% with inspiration. Pericardium There is no pericardial effusion. Other Information Study Quality: Fair Conclusion Normal biventricular systolic function. Mild PI. Electronically signed by : Reina Real MD 08/11/2025 22:51:14
[2025-08-11 08:29] VITALS: BMI 30.5
[2025-08-11] MEDS: DEFINITY US ECHO CONTRAST 2ML INJ 2 MG IV (08:41)
[2025-08-11 08:45] VITALS: BP 125/77; PULSE 86; RESP 16; TEMP 36.3; O2SAT 97
[2025-08-11] MEDS: IVABRADINE HCL 7.5MG TABLET PO (08:53)
[2025-08-11] MEDS: METOPROLOL TARTRATE 50MG TABLET PO (08:53)
[2025-08-11 08:54] LABS: Chloride 103 mmol/L (98-107); Potassium 3.3 mmoL/L (3.5-5.1); Sodium 137 mmol/L (136-145)
[2025-08-11 08:56] LABS: Blood Urea Nitrogen 5 mg/dl (7-17); Creatinine Clearance Estimated 178 mL/min (50-200); Creatinine,Serum 0.70 mg/dl (0.52-1.04); Estimated Glomerular Filt Rate 106 ml/min (>60); GFR (African American) 128 ML/MIN (>60)
[2025-08-11 08:57] LABS: Anion Gap 11.3 mEq/L (5-15); Calcium 9.4 mg/dl (8.4-10.2); Carbon Dioxide 26 mmol/L (22.0-30.0); Glucose 99 mg/dl (74-100)
[2025-08-11 09:43] VITALS: BP 119/79; PULSE 67; RESP 17; O2SAT 97
[2025-08-11 09:50] VITALS: BP 111/66; PULSE 60; RESP 17; O2SAT 99
[2025-08-11] MEDS: 0.9 % SODIUM CHLORIDE 50 ML VIAL IV (09:54)
[2025-08-11] MEDS: SODIUM CHLORIDE 0.9% 10ML SYR (RAD ONLY) 10 ML IV (09:54)
[2025-08-11 09:55] VITALS: BP 119/70; PULSE 82; RESP 20; O2SAT 100
[2025-08-11] MEDS: IOPAMIDOL-370 (76%);100ML BOTTLE 90 ML IV (09:55)
--- NOTE | 2025-08-11 10:00 | CT_ITS ---
APPROVED REPORT Mud Jack Operator: CLINICAL INDICATION Chest Pain TECHNIQUE Image Acquisition: A 128 slice MDCT scanner ([employer]achi Pikimala View) was used for data acquisition. A noncontrast coronary calcium scan was performed. A CT attenuation threshold of 130 Hounsfield units (HU) was used for the detection of calcium in contiguous voxels of 1 sq mm in area to be counted as individual lesions. Bolus tracking in the ascending aorta with a threshold of 180 HU was performed. Immediately afterwards, ECG synchronized cardiac CT was then performed from the cardiac base to apex using retrospective gating with ECG tube current modulation. A total of 85 mL of Isovue 370 mg/mL contrast medium was administered at 5 mL/sec followed by a saline flush using a biphasic injection protocol. A tube voltage of 120 KVp was used. The average heart rate at the time of acquisition was 61 bpm and regular. Image Reconstruction Transaxial images were reconstructed at 0.67 mm slide thickness. Data was reviewed interactively on an advanced workstation capable of 2 and 3-dimensional displays in all conventional reconstruction formats, including multiplanar reformations, maximum intensity projections, curved multiplanar reformations, and volume rendered reconstructions. When applicable, selected routine images describing the relevant coronary anatomy and pathology were saved and sent to PACS. Complications None Technical Quality Overall image quality was good. Coronary artery opacification was adequate. Total DLP (Dose-Length Product) is 1914.1 mGy-cm. The reported value represents the total of one or more individual components during the CT acquisition of this date and at this time, and as such, the same value may appear in more than one CT report depending on the interpreting/reporting physicians. COMPARISON None FINDINGS CT Coronary Calcium Scoring LMA (Left Main Artery) = 0 LAD (Left Anterior Descending) = 0 LCX (Left Coronary Circumflex) = 0 RCA (Right Coronary Artery) = 0 Total Calcium Score = 0 using the AJ-130 method. The interpretation of the calcium heart score is based on the following continuum*: 0 = no calcified plaque detected (risk of coronary artery disease is very low ??? less than 5%) 1-10 = calcium detected in extremely minimal levels (risk of coronary diseases is still low ??? less than 10%) 11-100 = mild levels of plaque detected with certainty (mild or minimal narrowing of heart arteries is likely) 101-400 = definite,at least moderate levels of plaque detected (relatively high risk of a heart attack within 3-5 years) >401-999 = extensive levels of plaque detected (high risk of heart attack, high levels of vascular disease are present, high likelihood of at least one significant coronary narrowing) *The calcium heart score quantifies the burden of coronary calcification/plaque in the coronary arteries. The calcium heart score is not able to evaluate the presence or burden of non-calcified (i.e. soft) plaque. There is no identifiable calcification in the aortic valve, mitral annulus or mitral valve, pericardium, or myocardium. Coronary CT Angiography The coronary arterial system is right dominant. Quantitative Stenosis Grading: Left Main (LM): The left main originates normally from the left sinus of Valsalva. The LM bifurcates into the left anterior descending artery and left circumflex artery. The LM is patent with no evidence of atherosclerosis. Left Anterior Descending (LAD) and Diagonal Branches: The LAD gives off 2 diagonal branch(es). The LAD and its branches are patent with no evidence of atherosclerosis. There is no evidence of LAD-myocardial bridge. Left Circumflex (LCX) and Obtuse Marginals (OM): The LCX gives off 1 Obtuse Marginal (OM) branch(es). The LCX and its branches are patent with no evidence of atherosclerosis. Right Coronary Artery (RCA): The RCA originates normally from the right sinus of Valsalva. The RCA gives off a posterior descending artery (PDA) and posterolateral (PL) branches. The RCA and its branches are patent with no evidence of atherosclerosis. Non-Coronary Cardiac Findings: Analysis of the left ventricular (LV) structure and function was performed after 3-D reconstruction of the LV from axial images, with user-corrected automatic contouring for assessment of LV volumes and user-defined reconstruction from oblique planes for measurement of 3-D cardiac structure and function. -The left ventricle systolic function is normal. -There is no left atrial appendage filling defect. Two right pulmonary veins and two left pulmonary veins drain normally into the left atrium. -No pericardial thickening or calcification. -Central and branch pulmonary arteries in the uasyi-lh-zosa are unremarkable. -Thoracic aorta within the visualized thoracic aortic-branches in the [id number] is unremarkable. Extracardiac Structures No significant extra-cardiac findings. Note, however, that this study is focused on the cardiac findings. IMPRESSION -Absence of coronary calcification with an Agatston score = 0 using the AJ-130 method. -No evidence of significant flow-limiting atherosclerosis of the coronary arteries. -No evidence of coronary anomalies or myocardial bridges. -CAD-RADS 0. Management recommendations per ACC/AHA guidelines*, as clinically appropriate. *Recommendations: CAD RADS 0: Reassurance. Consider non-atherosclerotic causes of chest pain. CAD RADS 1: Consider non-atherosclerotic causes of chest pain. Consider preventive therapy and risk factor modification. CAD RADS 2: Consider non-atherosclerotic causes of chest pain. Consider preventive therapy and risk factor modification, particularly for patients with nonobstructive plaque in multiple segments. CAD RADS 3: Consider further functional testing. Consider symptom-guided anti-ischemic and preventive pharmacotherapy as well as risk factor modification per published guideline statements. CAD RADS 4A: Consider further functional testing or invasive coronary angiography with revascularization per published guideline statements. Consider symptom-guided anti-ischemic and preventive pharmacotherapy as well as risk factor modification per published guideline statements. CAD RADS 4B: Invasive coronary angiography recommended with revascularization per published guideline statements. Consider symptom-guided anti-ischemic and preventive pharmacotherapy as well as risk factor modification per published guideline statements. CAD RADS 5: Consider invasive angiography and/or viability assessment with revascularization per published guideline statements. Consider symptom-guided anti-ischemic and preventive pharmacotherapy as well as risk factor modification per published guideline statements. CRITICAL RESULT None COMMUNICATION Per this written report The coronary and cardiac findings of this CCTA were reviewed, reported, and signed by Lester Real MD (Potato Spotter) Conclusion Electronically signed by : Reina Real MD 08/11/2025 22:54:46
== END 2025-08-11 10:05 | disposition home or self-care (01) ==
PROVIDERS: PCP Nurse Practitioner Family; Visit Provider Internal Medicine
DX: I37.1 Nonrheumatic pulmonary valve insufficiency (principal); I51.7 Cardiomegaly; R94.31 Abnormal electrocardiogram [ECG] [EKG]; R42 Dizziness and giddiness; E78.5 Hyperlipidemia, unspecified; R07.9 Chest pain, unspecified
CPT/HCPCS: 75574; 80048; 93306; Q9957; Q9967

== ENCOUNTER 2025-09-01 13:47 | Outpatient (CLI) | payer MEDICAID, SELFPAY ==
[2025-09-01 14:38] LABS: Anion Gap 12.0 mEq/L (5-15); Blood Urea Nitrogen 9 mg/dl (7-17); Calcium 9.6 mg/dl (8.4-10.2); Carbon Dioxide 24 mmol/L (22.0-30.0); Chloride 103 mmol/L (98-107); Creatinine,Serum 0.80 mg/dl (0.52-1.04); Estimated Glomerular Filt Rate 91 ml/min (>60); GFR (African American) 110 ML/MIN (>60); Glucose 105 mg/dl (74-100); Magnesium 1.8 mg/dl (1.6-2.3); Potassium 4.0 mmoL/L (3.5-5.1); Sodium 135 mmol/L (136-145)
--- OUTSIDE RECORDS SUMMARY | 2025-09-01 14:44 | XMS_ITS | Clinical Summary ---
Author Organization Healthcare Address [address] [place] [address] Care Team Providers Care Drapery Hemmer Automatic Name Role Phone Eddie Wolfe MD Primary Care Provider [phone] Allergies No known active allergies Medications busPIRone [...] Date Last Done Comments UKY-Depression Screening 2004 [facility]-Infant/Child/Adol SDOH Screenings 2004 HPV Vaccines (1 - 3-dose series) 2019 [facility]Y- SDOH Screenings 2022 UKY-Adult SDOH Screenings 2022 UKY-DTaP,Tdap,and Td Vaccines (2 - Td or Tdap) 05/27/2025 05/27/2015 UKY-Pap Smear 2025 [id number] Vaccine (2024- season) 2025 10/24/2021, 02/16/2021, 01/26/2021 UKY-Influenza Vaccine (#1) 2025 07/20/2022, UKY-Zoster Vaccines (1 of 2) 2054 07/11/2008, 07/06/2005 UKY-Hepatitis B Vaccines Completed 005, 2004, 2004 [facility]Y-Hepatitis A Vaccines Completed 08/06/2007, 07/08 UKY-IPV Vaccines Completed 07/11/2008, , 2004, Additional history exists UKY-Varicella Vaccines Completed 07/11/2008, 2004 UKY-HIB Vaccines Aged Out No longer e [...] topic Insurance ANTHEM ANTHEM ANTHEM Care Teams Drapery Hemmer Automatic Relationship Specialty Start Date End Date Eddie Wolfe MD [address] [place] [address] PCP - General 03/19/21
--- OUTSIDE RECORDS SUMMARY | 2025-09-01 14:44 | XMS_ITS | Clinical Summary ---
[facility] [address] [place] [address] Care Team Providers Care Nurse Private Duty Name Role Phone Cristhian Wolfe MD Primary [...] patient's age to complete this topic Insurance [facility] [place] [id number] Care Teams Nurse Private Duty Relationship Specialty Start Date End Date Cristhian Wolfe MD PCP - General Neurology 01/05/17
--- OUTSIDE RECORDS SUMMARY | 2025-09-01 14:44 | XMS_ITS | Encounter Summary ---
Author Organization Healthcare Address [address] [place] [address] Care Team Providers Care Brake Lining Maker Name Role Phone Eddie Wolfe MD Primary Care Provider [phone] Reason for Visit * Reason Comments Med Refill Encounter Details Date Type Department Care Team (Late st Contact Info) Description 05/02/2022 Refill [place] [facility] [address] [place] [address] Sade Hdz MD [address] [place] [address] Social History Tobacco Use Types [...] on filedocumented in this encounter Care Teams Brake Lining Maker Relationship Specialty Start Date End Date Eddie Wolfe MD [address] [place] [address] PCP - General 03/19/21 documented as of this encounter
== END 2025-09-01 23:59 | disposition home or self-care (01) ==
LOC: LAB 13:48
PROVIDERS: PCP Nurse Practitioner Family; Visit Provider Internal Medicine
DX: G90.A Postural orthostatic tachycardia syndrome [POTS] (principal); R93.1 Abnormal findings on diagnostic imaging of heart and coronary circulation; R94.31 Abnormal electrocardiogram [ECG] [EKG]; E05.90 Thyrotoxicosis, unspecified without thyrotoxic crisis or storm; E78.5 Hyperlipidemia, unspecified
CPT/HCPCS: 36415; 80048; 83735

== ENCOUNTER 2025-09-22 07:40 | Day surgery (SDC) | payer MEDICAID, SELFPAY ==
--- OUTSIDE RECORDS SUMMARY | 2025-09-22 07:43 | XMS_ITS | Encounter Summary ---
Author Organization Healthcare Address [address] [place] [address] Care Team Providers Care Gathering Machine Feeder Name Role Phone Eddie Wolfe MD Primary Care Provider [phone] Reason for Visit * Reason Comments Med Refill Encounter Details Date Type Department Care Team (Late st Contact Info) Description 05/02/2022 Refill [place] [facility] [address] [place] [address] Sade Hdz MD [address] [place] [address] Social History Tobacco Use Types [...] on filedocumented in this encounter Care Teams Gathering Machine Feeder Relationship Specialty Start Date End Date Eddie Wolfe MD [address] [place] [address] PCP - General 03/19/21 documented as of this encounter
--- OUTSIDE RECORDS SUMMARY | 2025-09-22 07:43 | XMS_ITS | Clinical Summary ---
Author Organization Healthcare Address [address] [place] [address] Care Team Providers Care Pattern Ruler Name Role Phone Eddie Wolfe MD Primary Care Provider [phone] Allergies No known active allergies Medications busPIRone [...] or Tdap) 05/27/2025 05/27/2015 UKY-Pap Smear 2025 [id number] Vaccine (2024- season) 2025 10/24/2021, 02/16/2021, 01/26/2021 [...] topic Insurance ANTHEM ANTHEM ANTHEM Care Teams Pattern Ruler Relationship Specialty Start Date End Date Eddie Wolfe MD [address] [place] [address] PCP - General 03/19/21
--- OUTSIDE RECORDS SUMMARY | 2025-09-22 07:43 | XMS_ITS | Clinical Summary ---
[facility] [address] [place] [address] Care Team Providers Care Endocrinology Specialist Name Role Phone Cristhian Wolfe MD Primary [...] patient's age to complete this topic Insurance [facility] [place] [id number] Care Teams Endocrinology Specialist Relationship Specialty Start Date End Date Cristhian Wolfe MD PCP - General Neurology 01/05/17
[2025-09-22 08:17] VITALS: BMI 29.7
[2025-09-22 08:38] VITALS: BP 130/96; RESP 18; TEMP 36.7; O2SAT 97
[2025-09-22] MEDS: 0.9 % SODIUM CHLORIDE 50 ML VIAL 40 ML IV (11:03)
[2025-09-22] MEDS: GADOTERIDOL INJ 20ML SYRINGE 19 ML IV (11:03)
[2025-09-22] MEDS: SODIUM CHLORIDE 0.9% 10ML SYR (RAD ONLY) 10 ML IV (11:03)
--- NOTE | 2025-09-22 15:14 | HMH.PROCNOTE ---
[facility] Procedure Note Date: 09/22/25 Time: 09:00 Procedure Note:: Procedure: Upright tilt table test Requiring physician: Reina Real MD Indication: Dizziness, near syncope Pretest vital signs: Blood pressure 117/80, heart rate 77, 99% on room air Procedure summary: Patient was prepared per protocol. She was then tilted into the upright position at 70 degrees for a total of 25 minutes with the test being terminated due to tachycardia, chest pain and shortness of breath. Minimum heart rate noted was 61 bpm, maximum heart rate was 152bpm. Oxygen saturation ranged from 96% to 98%. Systolic blood pressure ranged from 121-142. EKG rhythm strips show sinus rhythm. Patient developed tachycardia with a rate of 152 associated with chest pain and shortness of breath and test was terminated. Complications: None Conclusion: Positive upright tilt table test with chest pain, shortness of breath and tachycardia noted.
== END 2025-09-22 09:50 | disposition home or self-care (01) ==
LOC: RT 09-23 08:56
PROVIDERS: PCP Nurse Practitioner Family; Visit Provider Internal Medicine
DX: G90.A Postural orthostatic tachycardia syndrome [POTS] (principal); E05.90 Thyrotoxicosis, unspecified without thyrotoxic crisis or storm; E78.5 Hyperlipidemia, unspecified; Z77.22 Contact with and (suspected) exposure to environmental tobacco smoke (acute) (chronic); Z79.3 Long term (current) use of hormonal contraceptives; Z79.52 Long term (current) use of systemic steroids; Z79.899 Other long term (current) drug therapy; Z82.49 Family history of ischemic heart disease and other diseases of the circulatory system
CPT/HCPCS: 75561; 93660; A9576

== ENCOUNTER 2025-10-06 15:48 | Outpatient (CLI) | payer MEDICAID, SELFPAY ==
[2025-10-06 18:13] LABS: T4 (Thyroxine) 9.1 ug/dl (5.53-11.0)
[2025-10-06 18:15] LABS: Free T4 (Free Thyroxine) 1.31 ng/dl (0.78-2.19)
[2025-10-06 18:27] LABS: Thyroid Stimulating Hormone 1.16 uIU/mL (0.465-4.68)
--- OUTSIDE RECORDS SUMMARY | 2025-10-07 12:56 | XMS_ITS | Clinical Summary ---
Author Organization Healthcare Address [address] [place] [address] Care Team Providers Care Asbestos Hazard Abatement Worker Name Role Phone Eddie Wolfe MD Primary Care Provider [phone] Allergies No known active allergies Medications busPIRone [...] or Tdap) 05/27/2025 05/27/2015 [facility]-Pap Smear 2025 [id number] Vaccine (2024- season) 2025 10/24/2021, 02/16/2021, 01/26/2021 [...] topic Insurance ANTHEM ANTHEM ANTHEM Care Teams Asbestos Hazard Abatement Worker Relationship Specialty Start Date End Date Eddie Wolfe MD [address] [place] [id number] PCP - General 03/19/21
--- OUTSIDE RECORDS SUMMARY | 2025-10-07 12:56 | XMS_ITS | Encounter Summary ---
Author Organization Healthcare Address [address] [place] [address] Care Team Providers Care Threat Analyst Name Role Phone Eddie Wolfe MD Primary Care Provider [phone] Reason for Visit * Reason Comments Med Refill Encounter Details Date Type Department Care Team (Late st Contact Info) Description 05/02/2022 Refill [facility] [address] [place] [address] Sade Hdz MD [address] [place] [address] Social History Tobacco Use Types [...] on filedocumented in this encounter Care Teams Threat Analyst Relationship Specialty Start Date End Date Eddie Wolfe MD [address] [place] [id number] PCP - General 03/19/21 documented as of this encounter
--- OUTSIDE RECORDS SUMMARY | 2025-10-07 12:56 | XMS_ITS | Clinical Summary ---
[facility] [address] [place] [address] Care Team Providers Care Double End Production Grinder Name Role Phone Cristhian Wolfe MD Primary [...] patient's age to complete this topic Insurance [facility] [place] [id number] Care Teams Double End Production Grinder Relationship Specialty Start Date End Date Cristhian Wolfe MD PCP - General Neurology 01/05/17
[2025-10-08 08:13] LABS: Triiodothyronine (T3) Free 3.0 pg/mL (2.0-4.4)
== END 2025-10-06 23:59 | disposition home or self-care (01) ==
LOC: LAB.DROPOF 10-07 12:53
PROVIDERS: PCP Nurse Practitioner Family; Visit Provider Nurse Practitioner Family
DX: E05.90 Thyrotoxicosis, unspecified without thyrotoxic crisis or storm (principal); E04.1 Nontoxic single thyroid nodule
CPT/HCPCS: 84436; 84439; 84443; 84481; 86376; 86800